=== PATIENT | male | born 1990 | race Caucasian/White ===

== ENCOUNTER 2016-10-29 03:19 | Emergency (ER) | payer OTHER ==
[~2016-10-29] VITALS: Ht 182.9 cm; Wt 81.6 kg
--- NOTE | ~2016-10-29 | CR127 ---
[facility]. [facility] A Service of [facility] & [facility] RADIOLOGY TEXT RESULTS PATIENT: CECILE SUAREZ JR LOCATION: SED : [birth year] UNIT #: [id number] AGE: [address]: Cecile Gardiner MD SEX: M ORDER DR: [id number] [place] [address] [id number] E MR#: [id number] Acc #: [id number] NAME: CECILE SUAREZ JR : 1990 SEX: M STUDY DATE/TIME: 10/29/2016 3:40 UNIT: SED ROOM: STUDY DESCRIPTION: CR Foot Complete Min 3 View Rt Attending Physician: Cecile Gardiner M.D. Ordering Physician: Cecile Gardiner M.D. Primary Care Physician: Primary Care Physician No MEDICAL IMAGING REPORT This report is preliminary unless electronic signature is present. EXAM Right foot, 10/29/2016 HISTORY 25-year-old male in the ED complaining of right foot and ankle pain and swelling after rolling ankle playing basketball about 2 hours prior to arrival. TECHNIQUE Three-view right foot series FINDINGS No fracture, dislocation or other osseous abnormality is demonstrated. IMPRESSION Negative right foot series. Dictated by... Demarco Rasmussen M.D. THIS IS AN ELECTRONICALLY VERIFIED REPORT Demarco Rasmussen M.D. at 10/29/2016 5:07 PM Mariann TD: 10/29/2016 10:06 JOB #: [id number] MEDICAL IMAGING REPORT Page 1 of 1
--- NOTE | ~2016-10-29 | CR21 ---
[facility]. [facility] A Service of [facility] & [facility] RADIOLOGY TEXT RESULTS PATIENT: CECILE SUAREZ JR LOCATION: SED : 92 UNIT #: [id number] AGE: [address]: Cecile Gardiner MD SEX: M ORDER DR: [id number] [place] [address] [id number] E MR#: [id number] Acc #: [id number] NAME: CECILE SUAREZ JR : 1990 SEX: M STUDY DATE/TIME: 10/29/2016 3:40 UNIT: SED ROOM: STUDY DESCRIPTION: CR Ankle Min 3 Views Rt Attending Physician: Cecile Gardiner M.D. Ordering Physician: Cecile Gardiner M.D. Primary Care Physician: Primary Care Physician No MEDICAL IMAGING REPORT This report is preliminary unless electronic signature is present. EXAM Right ankle series, 10/29/2016 HISTORY 25-year-old male in the ED complaining of right foot and ankle pain and soft tissue swelling after twisting injury playing basketball about 2 hours prior to arrival. TECHNIQUE Three-view right ankle series FINDINGS The examination is negative. No fracture, dislocation or other osseous abnormality is demonstrated. IMPRESSION Negative right ankle series. Dictated by... Demarco Rasmussen M.D. THIS IS AN ELECTRONICALLY VERIFIED REPORT Demarco Rasmussen M.D. at 10/29/2016 5:07 PM Mariann TD: 10/29/2016 10:07 JOB #: [id number] MEDICAL IMAGING REPORT Page 1 of 1
[~2016-10-29 03:19] MED LIST: FLEXERIL PO; MEDROL DOSEPAK4 MG PO; NO MEDICATIONS; PEN-VEE K; PREDNISONE PO; TYLENOL #3 PO
== END 2016-10-29 04:29 | disposition home or self-care (01) ==
LOC: SED 03:19
DX: S93.491A Sprain of other ligament of right ankle, initial encounter (principal); Z88.6 Allergy status to analgesic agent; X50.1XXA Overexertion from prolonged static or awkward postures, initial encounter; Y92.830 Public park as the place of occurrence of the external cause
CPT/HCPCS: 73610; 73630; 99283